=== PATIENT | male | born 1965 | race Caucasian/White ===

== ENCOUNTER → 2017-07-23 13:49 | Outpatient (CLI) | payer SELFPAY ==
[2017-07-23 16:04] LABS: Absolute Lymphocyte Count 1.45 X10^3/ul (0.83-4.51); Absolute Neutrophil Count 2.5 X10^3/uL (2.0-7.7); Basophil# 0.02 X10^3/uL; Basophil% 0.5 % (0-1); Eosinophil# 0.04 X10^3/uL; Eosinophils% 0.9 % (0-5); Hematocrit 43.1 % (40-54); Lymphocyte # 1.45 X10^3/ul (4.0); Lymphocyte % 33.2 % (19-41); Mean Corp Hgb Conc 34.8 g/gl (32-36); Mean Corpuscular Hgb 31.1 pg (27.0-32.0); Mean Corpuscular Volume 89.4 fL (80-94); Mean Platelet Vol. 10.7 fl (6.2-12.0); Monocyte# 0.36 X10^3/uL; Monocyte% 8.2 % (0-10); Neutrophil % 57.2 % (47-70); Platelet Count 240 K/mm3 (150-450); RBC Distribution Width CV 13.1 % (11.6-14.6); Red Blood Count 4.82 M/mm3 (4.6-6.2); White Blood Count 4.4 K/mm3 (4.4-11.0)
[2017-07-23 16:06] LABS: POSITIVE COUNT NO; POSITIVE DIFFERENTIAL NO; POSITIVE MORPHOLOGY NO
[2017-07-23 18:47] LABS: ALB/GLOB Ratio 1.1 RATIO (0.9-2.4); AST(SGOT) 16 U/L (15-37); Alanine Aminotransfer ALT/SGPT 25 U/L (16-61); Albumin, Serum 3.9 g/dL (3.2-5.0); Alkaline Phosphatase 43 U/L (45-117); Anion Gap 8 (5-15); BUN 14 mg/dL (7-18); BUN/Creat Ratio 13.5 RATIO (10-20); CRP < 2.90 mg/L (0.0-3.0); Calcium,Total 8.7 mg/dL (8.5-10.1); Chloride 106 mmol/L (98-107); Creatinine, Serum 1.04 mg/dL (0.70-1.30); EST Glomerular Filtration Rate 80 mL/min (>60); Est Glom Filt Rate - Afr Amer 97 mL/min (>60); Globulin 3.6 g/dL (2.2-4.2); Glucose 77 mg/dL (74-106); Lipase 73 U/L (73-393); Protein, Total 7.5 g/dL (6.4-8.2); Sodium Level 139 mmol/L (136-145); Thyroid Stim Hormone (TSH) 0.86 uIU/mL (0.358-3.74)
[2017-07-23 19:14] LABS: Erythrocyte Sedimentation Rate 4 mm/hr (0-20)
[2017-07-27 16:10] LABS: Endomysial Antibody IgA Negative (Negative)
[2017-07-28 12:28] LABS: Deamidated Gliadin IgA 2 units (0-19); Deamidated Gliadin IgG 3 units (0-19); Immunoglobulin A 137 mg/dL (90-386); t-Transglutaminase IgA <2 U/mL (0-3)
[2017-07-28 16:08] LABS: Beef <0.10 kU/L (Class 0); Corn <0.10 kU/L (Class 0); Egg, Whole <0.10 kU/L (Class 0); Milk (Cow) <0.10 kU/L (Class 0); Peanut <0.10 kU/L (Class 0); Pork <0.10 kU/L (Class 0); Soybean <0.10 kU/L (Class 0); Wheat <0.10 kU/L (Class 0)
[2017-07-29 10:34] LABS: Chocolate <0.10 kU/L (Class 0)
== END ==
PROVIDERS: Family Provider Family Medicine; PCP Family Medicine; Visit Provider Family Medicine
DX: K62.5 Hemorrhage of anus and rectum (principal); R10.11 Right upper quadrant pain; R19.5 Other fecal abnormalities
CPT/HCPCS: 80053; 82784; 83516; 83690; 84443; 85025; 85652; 86003; 86005; 86140; 86255

== ENCOUNTER → 2017-07-24 13:29 | Outpatient (CLI) | payer SELFPAY | PROVIDERS: Family Provider Family Medicine; PCP Family Medicine; Visit Provider Family Medicine | DX: K62.5 Hemorrhage of anus and rectum (principal); R19.5 Other fecal abnormalities; R10.11 Right upper quadrant pain | CPT/HCPCS: 87506 ==

== ENCOUNTER → 2017-07-25 07:07 | Outpatient (CLI) | payer SELFPAY ==
--- NOTE | 2017-07-25 07:10 | CT_ITS ---
STUDY: CT ABDOMEN AND PELVIS WITHOUT CONTRAST REASON FOR EXAM: Male, 51 years old. Colicky right upper quadrant abdominal pain RADIATION DOSAGE (If Supplied By Facility): CTDIvol = ( 7.66 ) mGy, DLP = ( 404.04 ) mGycm TECHNIQUE: Transaxial images were obtained from the dome of the diaphragm to the symphysis pubis without oral contrast, and without intravenous contrast. Sagittal and coronal images were reconstructed. Individualized dose optimization techniques were used for this CT. COMPARISON: Prior comparison studies are not available for review at this time. FINDINGS: The visualized lung bases are unremarkable. The visualized portions of the heart are within normal limits. Is a tiny lucency within the dome of the right lobe of liver. This may represent a tiny cyst measuring less than a centimeter in size. This is too small to characterize. The liver has a normal appearance otherwise. Normal gallbladder and extrahepatic biliary system. Normal spleen. Normal pancreas. Normal bilateral adrenal glands. Normal right kidney. Normal left kidney. Normal visualized stomach. There is no evidence for dilated bowel, ascites or pneumoperitoneum. Small bowel has a grossly normal unenhanced appearance. Stool is visible throughout the colon with scattered colonic diverticula. There is non-visualization of the appendix. There is minimal atherosclerotic calcification of the abdominal aorta with mild tortuosity, but without a demonstrated aneurysm. Normal inferior vena cava. Normal retroperitoneum. Normal urinary bladder. Normal visualized prostate gland. Normal abdominal wall. There mild degenerative changes of both hips. CT/Abdomen/Pelvis without Cont IMPRESSION: No CT evidence of acute intra-abdominal disease. Electronically Signed: Alisha Huizar MD at 8:14 EDT , Service support ,
== END ==
PROVIDERS: Family Provider Family Medicine; PCP Family Medicine; Visit Provider Family Medicine
DX: R10.11 Right upper quadrant pain (principal)
CPT/HCPCS: 74176

== ENCOUNTER → 2018-04-09 12:39 | Outpatient (CLI) | payer SELFPAY ==
--- NOTE | 2018-04-09 12:48 | CT_ITS ---
STUDY: CT CHEST WITH T WITHOUT CONTRAST REASON FOR EXAM: Male, 52 years old. Family history of coronary disease. Calcium scoring examination. Radiological ovary. RADIATION DOSAGE (If Supplied By Facility): CTDIvol = ( 25.70 ) mGy, DLP = ( 1157.32 ) mGycm TECHNIQUE: Transaxial imaging was performed pre-and post contrast administration of 60mL ml of Isovue 370 contrast material. Individualized dose optimization techniques were used for this CT. COMPARISON: None. FINDINGS: Minimal degree of increased markings at the lung bases suggestive of mild bibasilar atelectasis. There is no demonstrated pleural abnormality. Normal heart and pericardium. There are multiple small lymph nodes within the mediastinum, which are normal in size and morphology most compatible with reactive lymph hyperplasia. Normal hilar regions. Normal enhanced and unenhanced pulmonary arteries. Normal aorta arch and descending thoracic aorta. Normal osseous structures. Small hiatal hernia. CT/Limited Chest CT w/CCTA IMPRESSION: No acute abnormality is seen. Electronically Signed: Adelfo Quiles MD at 8:46 EST , Service support ,
[2018-04-09 12:57] VITALS: BP 105/65; PULSE 65; RESP 16; O2SAT 97; BMI 25.0
[2018-04-09 13:26] VITALS: BP 137/84; PULSE 69
[2018-04-09 13:37] VITALS: BP 92/69; PULSE 75; RESP 16; O2SAT 92
[2018-04-09 13:55] VITALS: BP 101/67; PULSE 67; RESP 16; O2SAT 94
[2018-04-09 14:16] VITALS: BP 108/61; PULSE 71; RESP 16; O2SAT 93
--- NOTE | 2018-04-09 14:17 | NURSING ---
at bedside, understands home going directions, will go right home to rest, pt to entrance via w/c, steady alert x3
--- NOTE | 2018-04-09 17:52 | CCTA_ITS ---
CCTA w/Cont Coronary Arteries Date of Study:: 04/09/18 Date: 04/09/2018 Procedure: Cardiac CTA and coronary calcium score Indications: Dyspnea on exertion; family history of cardiovascular disease Consent: Per the patient Procedure: The patient underwent a high resolution CT imaging of the chest on 04/09/2018 with attention to the coronary arteries. The examination was analyzed for the presence and extent of coronary artery disease as well as the presence and extent of coronary artery calcification using a coronary calcium quantification software. The patient was reported as tolerated the procedure well with no adverse event. LEFT MAIN CORONARY ARTERY: The left main coronary artery appears to be large long vessel which gives rise to the left anterior descending and left circumflex coronary artery. It does not appear to demonstrate any obvious angiographically significant appearing disease. LEFT ANTERIOR DESCENDING CORONARY ARTERY: The left anterior descending coronary. The large vessel coursing to the LVH packs and giving rise to a small septal content creation manager system and a moderate long paralleling first diagonal branch being system. The LAD system does not appear to demonstrate any obvious angiographically significant appearing disease. LEFT CIRCUMFLEX CORONARY ARTERY: The left circumflex coronary artery gives rise to an obtuse marginal branch. This appears to be a moderate size system. It does not appear to demonstrate any obvious angiographically significant appearing disease. RIGHT CORONARY ARTERY: The right coronary artery appears to be large dominant vessel giving rise to a right PDA system. It does not appear to demonstrate any obvious angiographically significant appearing disease. THORACIC AORTA: The thoracic aorta appears to be patent with no obvious angiographically significant appearing disease. PULMONARY ARTERY: The main pulmonary artery and proximal portion of the right and left pulmonary artery appears to be patent without obvious filling defects. LEFT ATRIUM/APPENDAGE: The left atrium/appendage appears to be without obvious filling defects. MITRAL VALVE: The mitral valve appears to be Bileaflet. AORTIC VALVE: The aortic valve appears to be trileaflet. LEFT VENTRICLE: Based upon the CT images obtain there appears to be grossly normal left ventricular size, wall motion, and systolic function, however, the calculated LVEF was reported at 23% (? accuracy). CORONARY CALCIUM SCORE: The coronary calcium score was reported at 0. A coronary calcium score of 0, based upon pre published reference tables, would be indicative of a less than 5% chance of underlying CAD in a very long cardiovascular disease risk. Comment: Based upon the aforementioned findings would consider further evaluation with left ventricular wall motion and systolic function with a transthoracic echocardiogram if clinically indicated. This note was generated using a voice recognition system and there may be incorrect words, spelling or punctuation that were not noted when reviewing the office note prior to saving.
== END ==
PROVIDERS: Family Provider Family Medicine; PCP Family Medicine; Referring Provider Family Medicine; Visit Provider Family Medicine
DX: Z82.49 Family history of ischemic heart disease and other diseases of the circulatory system (principal)
CPT/HCPCS: 75571; 75574; 76380; Q9967

== ENCOUNTER → 2019-11-28 15:30 | Outpatient (CLI) | payer SELFPAY ==
[2019-07-15 13:54] VITALS: BMI 25.0
[2019-11-28 18:01] LABS: Absolute Lymphocyte Count 1.63 X10^3/uL (0.83-4.51); Absolute Neutrophil Count 6.6 X10^3/uL (2.0-7.7); Basophil# 0.01 X10^3/uL; Basophil% 0.1 % (0-1); Eosinophil# 0.02 X10^3/uL; Eosinophils% 0.2 % (0-5); Hematocrit 41.8 % (40-54); Hemoglobin 14.1 g/dL (13.0-16.5); Lymphocyte # 1.63 X10^3/ul (4.0); Lymphocyte % 17.9 % (19-41); Mean Corp Hgb Conc 33.7 g/dL (32-36); Mean Corpuscular Hgb 31.3 pg (27.0-32.0); Mean Corpuscular Volume 92.7 fL (80-94); Mean Platelet Vol. 11.1 fl (6.2-12.0); Monocyte% 8.8 % (0-10); NRBC Flagged by Analyzer 0 % (0-5); Neutrophil # 6.61 X10^3/uL (2.7-7.7); Neutrophil % 72.7 % (47-70); Platelet Count 270 K/mm3 (150-450); RBC Distribution Width CV 12.9 % (11.6-14.6); RBC Distribution Width SD 43.8 fl (35.1-43.9); Red Blood Count 4.51 M/mm3 (4.6-6.2); White Blood Count 9.1 K/mm3 (4.4-11.0)
[2019-11-28 18:47] LABS: Anion Gap 10 (5-15); BUN 14 mg/dL (7-18); BUN/Creat Ratio 11.2 RATIO (10-20); Calcium,Total 9.3 mg/dL (8.5-10.1); Chloride 101 mmol/L (98-107); Creatinine, Serum 1.25 mg/dL (0.70-1.30); EST Glomerular Filtration Rate 64 mL/min (>60); Est Glom Filt Rate - Afr Amer 78 mL/min (>60); Glucose 68 mg/dL (74-106); Potassium 4.2 mmol/L (3.5-5.1); Sodium Level 137 mmol/L (136-145); Thyroid Stim Hormone (TSH) 0.68 uIU/mL (0.358-3.74)
== END ==
PROVIDERS: PCP Family Medicine; Referring Provider Family Medicine; Visit Provider Family Medicine
DX: F43.22 Adjustment disorder with anxiety (principal)
CPT/HCPCS: 36415; 80048; 84443; 85025

== ENCOUNTER → 2020-01-17 11:56 | Outpatient (CLI) | payer SELFPAY ==
[2019-07-15 13:54] VITALS: BMI 25.0
[2020-01-17 15:17] LABS: Absolute Lymphocyte Count 1.04 X10^3/uL (0.83-4.51); Absolute Neutrophil Count 3.5 X10^3/uL (2.0-7.7); Basophil# 0.01 X10^3/uL; Basophil% 0.2 % (0-1); Eosinophil# 0.04 X10^3/uL; Eosinophils% 0.8 % (0-5); Hematocrit 38.2 % (40-54); Hemoglobin 12.6 g/dL (13.0-16.5); Lymphocyte # 1.04 X10^3/ul (4.0); Lymphocyte % 20.7 % (19-41); Mean Corpuscular Hgb 31.3 pg (27.0-32.0); Mean Platelet Vol. 11.3 fl (6.2-12.0); Monocyte# 0.41 X10^3/uL; Monocyte% 8.2 % (0-10); NRBC Flagged by Analyzer 0 % (0-5); Neutrophil # 3.51 X10^3/uL (2.7-7.7); Neutrophil % 69.9 % (47-70); Platelet Count 283 K/mm3 (150-450); RBC Distribution Width SD 49.2 fl (35.1-43.9); Red Blood Count 4.02 M/mm3 (4.6-6.2)
[2020-01-17 15:36] LABS: AST(SGOT) 64 U/L (15-37); Alanine Aminotransfer ALT/SGPT 183 U/L (16-61); Albumin, Serum 3.6 g/dL (3.2-5.0); Alkaline Phosphatase 171 U/L (45-117); Anion Gap 8 (5-15); BUN 14 mg/dL (7-18); BUN/Creat Ratio 14.7 RATIO (10-20); CRP < 2.90 mg/L (0.0-3.0); Calcium,Total 9.1 mg/dL (8.5-10.1); Chloride 103 mmol/L (98-107); Creatinine, Serum 0.95 mg/dL (0.70-1.30); EST Glomerular Filtration Rate 88 mL/min (>60); Est Glom Filt Rate - Afr Amer 106 mL/min (>60); Globulin 3.7 g/dL (2.2-4.2); Glucose 83 mg/dL (74-106); Potassium 4.2 mmol/L (3.5-5.1); Protein, Total 7.3 g/dL (6.4-8.2); Sodium Level 138 mmol/L (136-145)
[2020-01-19 08:05] LABS: SARS-COV-2 TOTAL ABS Reactive (Nonreactive)
[2020-01-19 16:26] LABS: ANTINUCLEAR ANTIBODIES DIRECT Negative (Negative)
[2020-01-20 18:45] LABS: GGTP 450 U/L (15-85)
[2020-01-23 09:52] LABS: Hepatitis C Antibody Non-Reactive (Nonreactive)
== END ==
LOC: MFPLAB 11:57
PROVIDERS: PCP Family Medicine; Referring Provider Family Medicine; Visit Provider Family Medicine
DX: U07.1 COVID-19 (principal); R63.4 Abnormal weight loss
CPT/HCPCS: 36415; 80053; 82533; 82977; 83516; 85025; 86038; 86140; 86708; 86709; 86769; 86803

== ENCOUNTER → 2020-01-18 14:01 | Outpatient (CLI) | payer SELFPAY ==
[2019-07-15 13:54] VITALS: BMI 25.0
--- NOTE | 2020-01-18 14:16 | CT_ITS ---
STUDY: CT ABDOMEN AND PELVIS WITH CONTRAST REASON FOR EXAM: Male, 54 years old. ABDOMINAL PAIN X 5-6 MONTHS RADIATION DOSAGE (If Supplied By Facility): CTDIvol = ( 13.41 ) mGy, DLP = ( 507.52 ) mGycm TECHNIQUE: Transaxial images were obtained from the dome of the diaphragm to the symphysis pubis with oral contrast. Oral and amp; IV Readi-CAT and amp; 100mL Isovue-300 was administered. Sagittal and coronal images were reconstructed. Individualized dose optimization techniques were used for this CT. COMPARISON: Comparison is made with prior study dated 07/25/2017. FINDINGS: The visualized lung bases are unremarkable. The visualized portions of the heart are within normal limits. 1 cm lucency is seen in the dome of the right lower lobe are suggestive of a small cyst. Normal gallbladder and extrahepatic biliary system. Normal spleen. Normal pancreas. Normal bilateral adrenal glands. Normal right kidney. Normal left kidney. Normal visualized stomach. Normal small intestine. Large amount of fecal material is seen in the rectosigmoid colon. The appendix is visualized and appears normal. Normal abdominal aorta. Normal inferior vena cava. Normal retroperitoneum. Normal urinary bladder. Normal abdominal wall. Normal osseous structures. CT/Abdomen/Pelvis WITH Contrast IMPRESSION: Normal enhanced CT of the abdomen and pelvis. Electronically Signed: Adelfo Quiles, at 14:54 EST , Service support ,
== END ==
PROVIDERS: PCP Family Medicine
DX: R10.84 Generalized abdominal pain (principal); K62.5 Hemorrhage of anus and rectum
CPT/HCPCS: 74177; Q9967

== ENCOUNTER → 2020-01-31 09:28 | Outpatient (CLI) | payer SELFPAY ==
[2019-07-15 13:54] VITALS: BMI 25.0
--- NOTE | 2020-01-31 09:34 | US_ITS ---
STUDY: ABDOMINAL ULTRASOUND - RIGHT UPPER QUADRANT REASON FOR VISIT: Male, 54 years old ELEVATED LIVER ENZYMES TECHNIQUE: Ultrasound evaluation of the right upper quadrant was performed with real-time and static cruz-scale imaging. TECHNICAL QUALITY: Adequate. COMPARISON: None. FINDINGS: Liver: The liver measures 15 cm. There is normal echogenicity of the liver. The bile ducts are within normal limits. There is hepatic color flow. The direction of portal flow is hepatopetal. There is no demonstrated mass lesion. Gallbladder: Normal distended gallbladder. The gallbladder wall measures 1.8 mm. There is a negative sonographic Pryor''s sign. There is no pericholecystic fluid. There are no gallstones. Common Bile Duct (C.B.D.): The common bile duct measures 5 mm. Pancreas: There is no demonstrated pancreatic mass or cyst. Right Kidney: Normal size of the right kidney. The right kidney measures 11.0 cm. Normal renal cortex. The right cortex measures 1.0 cm. There is no demonstrated renal mass or cyst. There is no right hydronephrosis. US/Liver IMPRESSION: Normal right upper quadrant ultrasound examination. Electronically Signed: Josué Prajapati MD (Brooks) at 18:51 EST , Service support ,
[2020-01-31 15:18] LABS: Erythrocyte Sedimentation Rate 5 mm/hr (0-20)
[2020-01-31 15:57] LABS: CRP < 2.90 mg/L (0.0-3.0); Iron 63 ug/dL (65-175); Iron Binding Capacity,Total 306 ug/dL (250-450); Lipase 114 U/L (73-393)
[2020-02-03 16:08] LABS: PROEL- A/G Ratio 1.4 (0.7-1.7); PROEL- Albumin 3.8 g/dL (2.9-4.4); PROEL- Alpha-1 Globulin 0.2 g/dL (0.0-0.4); PROEL- Alpha-2 Globulin 0.6 g/dL (0.4-1.0); PROEL- Beta Globulin 0.9 g/dL (0.7-1.3); PROEL- Globulin, Total 2.7 g/dL (2.2-3.9); PROEL- TOTAL PROTEIN 6.5 g/dL (6.0-8.5)
== END ==
PROVIDERS: PCP Family Medicine; Referring Provider Family Medicine; Visit Provider Family Medicine
DX: R74.8 Abnormal levels of other serum enzymes (principal); R74.01 Elevation of levels of liver transaminase levels
CPT/HCPCS: 36415; 76705; 83540; 83550; 83690; 84165; 85652; 86140

== ENCOUNTER → 2020-02-08 15:29 | Outpatient (CLI) | payer SELFPAY ==
[2019-07-15 13:54] VITALS: BMI 25.0
[2020-02-08 18:27] LABS: Absolute Lymphocyte Count 1.37 X10^3/uL (0.83-4.51); Absolute Neutrophil Count 3.9 X10^3/uL (2.0-7.7); Basophil# 0.04 X10^3/uL; Basophil% 0.7 % (0-1); Eosinophil# 0.13 X10^3/uL; Eosinophils% 2.2 % (0-5); Hematocrit 38.7 % (40-54); Hemoglobin 12.6 g/dL (13.0-16.5); Lymphocyte # 1.37 X10^3/ul (4.0); Lymphocyte % 23.5 % (19-41); Mean Corp Hgb Conc 32.6 g/dL (32-36); Mean Corpuscular Hgb 31.2 pg (27.0-32.0); Mean Corpuscular Volume 95.8 fL (80-94); Monocyte# 0.42 X10^3/uL; Monocyte% 7.2 % (0-10); NRBC Flagged by Analyzer 0 % (0-5); Neutrophil # 3.87 X10^3/uL (2.7-7.7); Neutrophil % 66.2 % (47-70); Platelet Count 284 K/mm3 (150-450); RBC Distribution Width CV 13.9 % (11.6-14.6); Red Blood Count 4.04 M/mm3 (4.6-6.2); White Blood Count 5.8 K/mm3 (4.4-11.0)
[2020-02-08 18:49] LABS: ALB/GLOB Ratio 0.9 RATIO (0.9-2.4); AST(SGOT) 51 U/L (15-37); Alanine Aminotransfer ALT/SGPT 129 U/L (16-61); Albumin, Serum 3.5 g/dL (3.2-5.0); Alkaline Phosphatase 98 U/L (45-117); Anion Gap 5 (5-15); BUN 11 mg/dL (7-18); BUN/Creat Ratio 11.3 RATIO (10-20); Calcium,Total 9.3 mg/dL (8.5-10.1); Chloride 103 mmol/L (98-107); Creatinine, Serum 0.97 mg/dL (0.70-1.30); EST Glomerular Filtration Rate 86 mL/min (>60); Est Glom Filt Rate - Afr Amer 104 mL/min (>60); GGTP 280 U/L (15-85); Globulin 3.8 g/dL (2.2-4.2); Glucose 84 mg/dL (74-106); Potassium 4.2 mmol/L (3.5-5.1); Protein, Total 7.3 g/dL (6.4-8.2); Sodium Level 136 mmol/L (136-145)
[2020-02-10 16:30] LABS: Anti-Smooth Muscle ABS 4 Units (0-19)
== END ==
PROVIDERS: PCP Family Medicine; Visit Provider Family Medicine
DX: R74.8 Abnormal levels of other serum enzymes (principal); R74.01 Elevation of levels of liver transaminase levels
CPT/HCPCS: 36415; 80053; 82977; 83516; 85025; 86900; 86901

== ENCOUNTER → 2020-02-15 14:27 | Outpatient (CLI) | payer SELFPAY ==
[2019-07-15 13:54] VITALS: BMI 25.0
[2020-02-18 11:23] LABS: EBV Acute VCA IgM < 36.0 U/mL (0.0-35.9)
[2020-02-18 11:28] LABS: CMV Acute Antibody IgM < 30.0 AU/mL (0.0-29.9); CMV Antibody IgG < 0.60 U/mL (0.00-0.59); EBV Early Antigen IgG <9.0 U/mL (0.0-8.9)
== END ==
PROVIDERS: PCP Family Medicine; Referring Provider Family Medicine; Visit Provider Family Medicine
DX: R53.83 Other fatigue (principal)
CPT/HCPCS: 36415; 86644; 86645; 86663; 86664; 86665

== ENCOUNTER → 2020-02-17 15:16 | Outpatient (CLI) | payer SELFPAY ==
[2019-07-15 13:54] VITALS: BMI 25.0
[2020-02-17 18:17] LABS: Absolute Lymphocyte Count 1.27 X10^3/uL (0.83-4.51); Absolute Neutrophil Count 3.9 X10^3/uL (2.0-7.7); Basophil# 0.02 X10^3/uL; Basophil% 0.4 % (0-1); Eosinophil# 0.07 X10^3/uL; Eosinophils% 1.2 % (0-5); Hematocrit 37.1 % (40-54); Lymphocyte # 1.27 X10^3/ul (4.0); Lymphocyte % 22.6 % (19-41); Mean Corp Hgb Conc 32.3 g/dL (32-36); Mean Corpuscular Hgb 30.5 pg (27.0-32.0); Mean Corpuscular Volume 94.2 fL (80-94); Mean Platelet Vol. 10.8 fl (6.2-12.0); Monocyte# 0.39 X10^3/uL; Monocyte% 6.9 % (0-10); NRBC Flagged by Analyzer 0 % (0-5); Neutrophil # 3.87 X10^3/uL (2.7-7.7); Neutrophil % 68.7 % (47-70); Platelet Count 263 K/mm3 (150-450); RBC Distribution Width CV 13.7 % (11.6-14.6); RBC Distribution Width SD 47.3 fl (35.1-43.9); Red Blood Count 3.94 M/mm3 (4.6-6.2); White Blood Count 5.6 K/mm3 (4.4-11.0)
[2020-02-17 18:43] LABS: ALB/GLOB Ratio 1.1 RATIO (0.9-2.4); AST(SGOT) 46 U/L (15-37); Alanine Aminotransfer ALT/SGPT 132 U/L (16-61); Albumin, Serum 3.6 g/dL (3.2-5.0); Alkaline Phosphatase 90 U/L (45-117); Anion Gap 5 (5-15); BUN 15 mg/dL (7-18); BUN/Creat Ratio 16.4 RATIO (10-20); Calcium,Total 8.8 mg/dL (8.5-10.1); Chloride 104 mmol/L (98-107); Creatinine, Serum 0.92 mg/dL (0.70-1.30); EST Glomerular Filtration Rate 92 mL/min (>60); Est Glom Filt Rate - Afr Amer 111 mL/min (>60); GGTP 250 U/L (15-85); Globulin 3.3 g/dL (2.2-4.2); Glucose 94 mg/dL (74-106); Potassium 3.9 mmol/L (3.5-5.1); Protein, Total 6.9 g/dL (6.4-8.2); Sodium Level 136 mmol/L (136-145)
== END ==
PROVIDERS: PCP Family Medicine; Referring Provider Family Medicine; Visit Provider Family Medicine
DX: R74.01 Elevation of levels of liver transaminase levels (principal); F41.9 Anxiety disorder, unspecified
CPT/HCPCS: 36415; 80053; 82977; 85025

== ENCOUNTER → 2020-06-20 11:00 | Outpatient (CLI) | payer SELFPAY ==
[2019-07-15 13:54] VITALS: BMI 25.0
[2020-06-20 13:25] LABS: AST(SGOT) 13 U/L (15-37); Alanine Aminotransfer ALT/SGPT 25 U/L (16-61); Alkaline Phosphatase 51 U/L (45-117); Bilirubin, Direct 0.13 mg/dL (0.00-0.30); GGTP 30 U/L (15-85)
[2020-06-21 16:12] LABS: Anti-Mitochondrial AB <20.0 Units (0.0-20.0)
[2020-06-21 16:13] LABS: Alpha Antitrypsin Serum 127 mg/dL (101-187)
== END ==
PROVIDERS: PCP Family Medicine; Referring Provider Internal Medicine Gastroenterology; Visit Provider Internal Medicine Gastroenterology
DX: R10.11 Right upper quadrant pain (principal); R94.5 Abnormal results of liver function studies
CPT/HCPCS: 36415; 80076; 82103; 82977; 83516

== ENCOUNTER → 2020-07-06 12:15 | Outpatient (CLI) | payer SELFPAY ==
[2019-07-15 13:54] VITALS: BMI 25.0
--- NOTE | 2020-07-06 12:20 | NM_ITS ---
CLINICAL: 54-year-old male with reported history of right upper quadrant abdominal pain and elevation of the serum transaminase enzyme levels. RADIONUCLIDE HEPATOBILIARY SCINTIGRAPHY COMPARISON: Abdominal ultrasound report 01/31/2020 FINDINGS: Following the intravenous administration of 5.6 mCi of 99m Tc Mebrofenin, hepatobiliary images reveal: 1. Relatively prompt and homogeneous radiopharmaceutical concentration is noted by a normal sized liver. No parenchymal defects are identified. 2. Gallbladder activity is identified at 15 minutes post radiopharmaceutical administration. 3. Small intestinal tract is observed at 30 minutes following tracer injection. 4. Washout of the radiopharmaceutical by the hepatic parenchyma appears qualitatively normal. The patient was administered a fatty meal ( 8 ounces Half and Half). The post fatty meal ingestion gallbladder ejection fraction calculated at 30 minutes was noted to be 52.0 % (normal greater than 30%). NM/Hepatobilliary Img w/Pharm Int IMPRESSION: 1. NORMAL 99m Tc Mebrofenin hepatobiliary imaging examination with fatty meal ingestion. A. A gallbladder ejection fraction calculated to be greater than 30% following the administration of an ingested fatty meal makes the probability of functional hepatobiliary disease (gallbladder and/or sphincter of Oddi dyskinesia) and/or organic hepatobiliary disease (chronic acalculous cholecystitis and/or cystic duct syndrome) to be low. (Raymond and Magdiel, J Nucl Med 43: 1603, 2002). Comparable sensitivities are achieved with fatty meal HIDA examinations when compared to CCK infusion studies. (Melanie et al, J Nucl Med 25: 21, 1983). Electronically Signed: Henok Smart DO at 19:14 EDT Tel , Service support ,
== END ==
PROVIDERS: PCP Family Medicine; Referring Provider Internal Medicine Gastroenterology; Visit Provider Internal Medicine Gastroenterology
DX: R10.11 Right upper quadrant pain (principal); R94.5 Abnormal results of liver function studies
CPT/HCPCS: 78227; A9537

== ENCOUNTER 2022-08-19 06:04 | Day surgery (SDC) | payer SELFPAY ==
[2022-08-19] VITALS (8 sets, daily range): BP systolic 83–105; BP diastolic 60–75; PULSE 78–102; RESP 16; TEMP 36.4–36.8; O2SAT 92–96; BMI 24.7
--- NOTE | 2022-08-19 06:12 | HP.PCM_ITS ---
History and Physical Date of Admission: 08/19/22 Visit Reasons:?UPPER & LOWER & HEMORRHOIDS Chief Complaint: Consult upper and lower scopes Wireless Manager Required: No Is patient in pain?: No Allergies No Known Allergies Allergy (Verified 06/26/22 09:01) Medications NK? 06/26/22 [History Confirmed 06/26/22] PFSH Medical History? Back problem Blood in stool Constipation Hemorrhoid Hyperlipidemia Internal bleeding hemorrhoids Surgical History? Hx of appendectomy Hx of colonoscopy Hx of melanoma excision Family History? Mother Arthritis Myocardial infarctionFather Heart disease Hypertension Social History? Smoking Status:? Never smoker second hand exposure:? No alcohol intake:? current alcohol intake frequency: holidays/special occasions only substance use type:? does not use caffeine:? Yes what type of physical activity do you participate in:? walking, running and additional details: crossfit frequency:? 3-4 times per week HPI HPI HPI: 56-year-old gentleman is referred by Dr. Cedric Dumont for consideration of possible a upper and lower endoscopy.? The patient has had previous history of symptomatic hemorrhoids.? Also now presents with new concerns regarding vomiting.? The patient's most recent visit with me was July 15, 2019.? He was having trouble with prolapsing bleeding internal hemorrhoids.? I had performed a colonoscopy for him December 10, 2016 and what appeared to be a cecal polyp I biopsied.? Pathology showed normal colonic mucosa.? An extensive discussion was had regarding treatment techniques including PPH stapled hemorrhoidopexy versus surgical hemorrhoidectomy.? We did not pursue any treatment at that time. The patient works as an auctioneer.? Recently business has been extraordinarily busy.? He is having increased problems on 2 different aspects.? He is got constipation and then prolapsing hemorrhoids almost with every bowel movement.? His intermittent rectal bleeding.? He also complains that he thinks he has hiatal hernia.? Occasionally with swallowing he will get a pressure sensation in the low chest area almost like a shortness of breath.? He has not had any weight loss.? He states that from a heart lung standpoint he otherwise feels normal.? He is able to climb a flight of stairs without chest pain or shortness of breath. ROS General General: No weight change, appetite, fatigue, colon cancer, breast cancer or weakness HEENT HEENT: No difficulty swallowing, eye injury, eye surgery, swollen glands or hoarseness Endo Endocrine: No thyroid disease, diabetes mellitus, thyroid cancer, Hair loss, heat intolerance or cold intolerance Skin Skin: Yes rash; No changing moles Breast Breast: No left breast lump, right breast lump, nipple discharge, breast pain, abnormal mammogram, abnormal US or breast enlargement Musc Musculoskeletal: Yes back problems; No arthritis, rheumatoid arthritis, gout or joint pain Cardio Cardiovascular: No murmur, pacemaker, heart disease, atrial fibrillation, high blood pressure, heart attack, heart stent, palpitations, shortness of breat with exertion or chest pain Psych Psychiatric: No depression, anxiety or hearing voices Resp Respiratory: No shortness of breath, No sleep apnea, No cough, No COPD, No asthma, No emphysema and No wheezing Gastro Gastrointestinal: No abdominal pain, No nausea or vomiting, No diarrhea, Yes constipation, No blood in stool, No acid reflux, Yes hemorrhoids, No ulcers, No gallbladder problem and Yes black,tarry stools Sanket Hematologic: No blood thinners, No blood disorders, No bleeding, No anemia and No blood clots Neuro Neurologic: No system reviewed and no additional complaints, except as documented, No as per HPI, No abnormal gait, No abnormal hearing, No abnormal movements, No abnormal speech, No behavioral changes, No burning sensations, No confusion, No convulsions, No disequilibrium, No dizziness, No localized weakness, No frequent falls, No headache(s), No lack of coordination, No loss of vision, No memory loss, Yes numbness, No other visual disturbances, No radicular pain, No restless legs, No sensory deficit, No syncope, Yes tingling, No tremor(s), No weakness and No other Exam Const General: cooperative, comfortable and no acute distress [facility] Head: normal to inspection Eyes General: appearance normal, both eyes and all related structures Chest Chest palpation & inspection: normal inspection of the chest Resp Effort & Inspection: normal respiratory effort Auscultation: clear to auscultation bilaterally Cardio Rate: regular rate Rhythm: regular rhythm GI Inspection: normal to inspection Palpation: soft and no hepatosplenomegaly Auscultation: normal bowel sounds Musc Cervical Spine: normal cervical lordosis Skin General: no rashes or lesions noted Neuro General: patient alert, patient awake and patient oriented x3 Extrem General: no calf tenderness Psych Appearance: grossly normal Assessment and Plan Assessment and Plan (1) Vomiting: ?Status:?Acute (2) Blood in stool: ?Status:?Acute (3) Constipation: ?Status:?Acute ?Plan: Patient has global symptoms consistent with esophageal dysphagia of undetermined etiology which he thinks might be a hiatal hernia but this has not been previously diagnosed as well as problems with constipation and ongoing problems with rectal bleeding.? He also is complaining of prolapsing of his hemorrhoids now on almost every occasion.? It has been since December 2016 from his previous colonoscopy. I propose for him a combined esophagogastroduodenoscopy with possible biopsy and colonoscopy with possible biopsy or polypectomy as indicated.? He is aware of the technique, benefit, risk and alternatives.? At this point I am not proposing that we attempt to combine all of that with a hemorrhoid procedure.? I have instructed him that recovery from a hemorrhoidectomy will take time and he suggested it might be better to do in the winter.? At this point based upon his symptoms I suspect that he will require a future surgical hemorrhoidectomy.? He is aware that this will require downtime from his auctioneering Copy: Dr. Cedric Rider MD, FACS I have examined the patient and the H&P has been reviewed. There are no clinical changes since date of exam. Reno Rider M.D., F.A.C.S.
[2022-08-19] MEDS: Lactated Ringers 1,000 ML 15 ML IV (06:51)
--- NOTE | 2022-08-19 07:00 | EGD_PTH ---
PATIENT: DIANNE CUMMINS Jr. LOC: EN U#:[id number] AGE/SX: 56/M ROOM: RE08/19/[address]: Dr. Reno Rider MD : 1965 BED: DIS: 08/19/2022 SPEC #: [id number] RECD: 08/19/22 11:34 STATUS: IMELDA COOLNoah #: [id number] LOLA: 08/19/22 07:[address]: Reno Rider DEPT: SURGICAL PATHOLOGY RECD BY: Chiara Crowe ENTERED: 08/19/22 12:31 SP TYPE: EGD BIOPSY OTHR DR: Dr. Cedric Dumont MD Tissues: A - Gastric mucous membrane B - Esophagus, NOS C - Esophagus, NOS Procedures: Special Stain Group II Surgery Specimen Level IV Alcian Blue/PAS (control) HEADER OPERATION: Colonoscopy, EGD with biopsies (MAC) PRE-OP DIAGNOSIS: Vomiting, blood in stool, constipation TISSUE SUBMITTED: A - Antrum biopsy for H. pylori and path, B - Distal esophagus, C - Mid esophagus MICROSCOPIC DIAGNOSIS A. Antrum, biopsy: Mild gastritis. See microscopic description and comment. B. Distal esophagus, biopsy: Fragments of gastroesophageal epithelium with mild chronic inflammation. Intestinal metaplasia (goblet cell metaplasia) not identified. See comment. C. Mid esophagus, biopsy: A fragment of benign squamous epithelium. SJ:rg 08/20/2022 COMMENT A. The results of immunohistochemistry for Helicobacter pylori will be reported separately ([id number]). B. Alcian blue/PAS stain with matched control is used in the evaluation of the specimen. MICROSCOPIC DESCRIPTION Slides are reviewed. A. The specimen shows fragments of gastric mucosa with chronic inflammatory cell infiltrates in the lamina propria consisting of lymphocytes and plasma cells, consistent with mild chronic gastritis. GROSS DESCRIPTION A - Received in fixative is one container labeled with the patient's name and designated antrum biopsy. The specimen consists of one irregular fragment of light bravo soft tissue that measures 0.3 x 0.3 x 0.1 cm. The specimen is totally submitted in one cassette. B - Received in fixative is one container labeled with the patient's name and designated distal esophagus. The specimen consists of two irregular fragments of light bravo soft tissue that in aggregate measure 0.4 x 0.3 x 0.1 cm. The specimen is totally submitted in one cassette. C - Received in fixative is one container labeled with the patient's name and designated mid esophagus. The specimen consists of one irregular fragment of light bravo soft tissue that measures 0.6 x 0.3 x 0.1 cm. The specimen is totally submitted in one cassette. / SJ:rg 08/19/2022 TC:3 CPT: 45420 x3, 15464
--- NOTE | 2022-08-19 07:00 | IMM_PTH ---
PATIENT: DIANNE CUMMINS Jr. LOC: RISA U#:[id number] AGE/SX: 56/M ROOM: RE08/19/[address]: Dr. Reno Rider MD : 1965 BED: DIS: 08/19/2022 SPEC #: [id number] RECD: 08/19/22 12:55 STATUS: IMELDA REQ #: [id number] LOLA: 08/19/22 07:[address]: Reno Rider DEPT: IMMUNOHISTOCHEMISTRY RECD BY: Tanja Garza ENTERED: 08/19/22 12:56 SP TYPE: IMMUNO OTHR DR: Dr. Cedric Dumont MD Tissues: A - Stomach, NOS Procedures: H Pylori (initial) PHYSICIAN & INSTITUTION [place] [address] SPECIMEN INFORMATION: Tissue Source: A ? Antrum biopsy Clinical Info: Vomiting, blood in stool, constipation Specimen Number: [id number] CPT code: 16197 METHODOLOGY: Deparaffinized sections of prefer/formalin-fixed tissue or PAP/DQ stained slides are incubated with monoclonal/polyclonal antibodies/oligonucleotide probes. Localization is made via biotin free immunoperoxidase method. Appropriate controls are performed and reacted as expected. Results on target cell population are indicated in the following table: RESULTS: ANTIBODY / CLONE RESULT Block A H Pylori (polyclonal) negative These tests were developed and their performance characteristics determined by [facility]. They may not have been cleared or approved by the U.S. Food and Drug Administration. The FDA has determined that such clearance or approval is not necessary. The above immunohistochemical/dualISH markers are ordered and reviewed by the Pathologist. INTERPRETATION: A. Antrum, biopsy: Negative for Helicobacter pylori organisms. SJ:kahlil 08/20/2022
--- NOTE | 2022-08-19 07:36 | OP.EGD_ITS ---
Patient Name: Nazia Huizar Procedure Date: 08/19/2022 6:59 AM Date of : 1965 Age: 56 Procedure: Upper GI endoscopy Indications: Suspected esophageal reflux Providers: Reno Rider MD Medicines: See the Anesthesia note for documentation of the administered medications Complications: No immediate complications. Procedure: Pre-Anesthesia Assessment: - Prior to the procedure, a History and Physical was performed, and patient medications and allergies were reviewed. The patient's tolerance of previous anesthesia was also reviewed. The risks and benefits of the procedure and the sedation options and risks were discussed with the patient. All questions were answered, and informed consent was obtained. Prior Anticoagulants: The patient has taken no previous anticoagulant or antiplatelet agents. ASA Grade Assessment: II - A patient with mild systemic disease. After reviewing the risks and benefits, the patient was deemed in satisfactory condition to undergo the procedure. After obtaining informed consent, the endoscope was passed under direct vision. Throughout the procedure, the patient's blood pressure, pulse, and oxygen saturations were monitored continuously. The pediatric colonoscope was introduced through the mouth, and advanced to the second part of duodenum. The upper GI endoscopy was accomplished without difficulty. The patient tolerated the procedure well. Scope In: 7:10:06 AM Scope Out: 7:17:45 AM Total Procedure Duration Time 0 hours 7 minutes 39 seconds Findings: The Z-line was regular and was found 44 cm from the incisors. Biopsies were taken with a cold forceps for histology. The middle third of the esophagus was normal. Biopsies were taken with a cold forceps for histology. Diffuse mildly erythematous mucosa without bleeding was found in the gastric antrum. Biopsies were taken with a cold forceps for histology. The in the duodenum was normal. Grade I varices were found in the middle third of the esophagus. Impression: - Z-line regular, 44 cm from the incisors. Biopsied. No significant hiatal hernia identified. - Normal middle third of esophagus. Biopsied. Single column minimal esophageal varix identified - Erythematous mucosa in the antrum. Biopsied. - Normal. Recommendation: - Await pathology results. - Discharge patient to home. - Resume previous diet. - Continue present medications. - Await pathology results. - Telephone my office for pathology results in 1 week. If patient's symptoms persist then consider esophageal manometry to evaluate for LES incompetence. Procedure Code(s): --- Professional --- 27680, Esophagogastroduodenoscopy, flexible, transoral; with biopsy, single or multiple Diagnosis Code(s): --- Professional --- K31.89, Other diseases of stomach and duodenum CPT copyright 2017 [employer]. All rights reserved. The codes documented in this report are preliminary and upon guest relations executive review may be revised to meet current compliance requirements. Reno Rider MD 08/19/2022 7:35:50 AM This report has been signed electronically. Number of Addenda: 0 Note Initiated On: 08/19/2022 6:59 AM
--- NOTE | 2022-08-19 07:37 | OP.CCLET_ITS ---
08/19/2022 Cedric Dumont [address] [place] [address] Re : Upper GI endoscopy procedure for Nazia Huizar Dear Dr. Dumont This procedure was performed on Friday, August 19, 2022. My impressions and recommendations are as follows: Impressions : - Z-line regular, 44 cm from the incisors. Biopsied. No significant hiatal hernia identified. - Normal middle third of esophagus. Biopsied. Single column minimal esophageal varix identified - Erythematous mucosa in the antrum. Biopsied. - Normal. Recommendations : - Await pathology results. - Discharge patient to home. - Resume previous diet. - Continue present medications. - Await pathology results. - Telephone my office for pathology results in 1 week. If patient's symptoms persist then consider esophageal manometry to evaluate for LES incompetence. My findings are described in the full procedure note, which is enclosed. If I can be of further assistance, please feel free to contact me at Doctor phone number(s): Work: . Sincerely, Reno Rider MD 08/19/2022 7:35:50 AM This report has been signed electronically.
--- NOTE | 2022-08-19 07:42 | OP.COLON_ITS ---
Patient Name: Nazia Huizar Procedure Date: 08/19/2022 7:18 AM Date of : 1965 Age: 56 Procedure: Colonoscopy Indications: Rectal bleeding Providers: Reno Rider MD Medicines: See the Anesthesia note for documentation of the administered medications Patient Profile: Last Colonoscopy: December 2016. Complications: No immediate complications. Procedure: Pre-Anesthesia Assessment: - Prior to the procedure, a History and Physical was performed, and patient medications and allergies were reviewed. The patient's tolerance of previous anesthesia was also reviewed. The risks and benefits of the procedure and the sedation options and risks were discussed with the patient. All questions were answered, and informed consent was obtained. Prior Anticoagulants: The patient has taken no previous anticoagulant or antiplatelet agents. ASA Grade Assessment: II - A patient with mild systemic disease. After reviewing the risks and benefits, the patient was deemed in satisfactory condition to undergo the procedure. After I obtained informed consent, the scope was passed under direct vision. Throughout the procedure, the patient's blood pressure, pulse, and oxygen saturations were monitored continuously. The pediatric colonoscope was introduced through the anus and advanced to the cecum, identified by appendiceal orifice and ileocecal valve. The colonoscopy was performed without difficulty. The patient tolerated the procedure well. The quality of the bowel preparation was good. The ileocecal valve and the appendiceal orifice were photographed. Scope In: 7:18:46 AM Scope Withdrawal Time 0 hours 6 minutes 17 seconds Scope Out: 7:30:09 AM Total Procedure Duration Time 0 hours 11 minutes 23 seconds Findings: The digital rectal exam findings include non-thrombosed external hemorrhoids, non-thrombosed internal hemorrhoids and internal hemorrhoids that prolapse with straining, but require manual replacement into the anal canal (Grade III). Pertinent negatives include normal prostate (size, shape, and consistency). The colon (entire examined portion) appeared normal. Impression: - Non-thrombosed external hemorrhoids, non-thrombosed internal hemorrhoids and internal hemorrhoids that prolapse with straining, but require manual replacement into the anal canal (Grade III) found on digital rectal exam. Friable to touch with easy bleeding from these prolapsing internal hemorrhoids. - The entire examined colon is normal. - No specimens collected. Recommendation: - Discharge patient to home. - Resume previous diet. - Continue present medications. - Repeat colonoscopy in 10 years for screening purposes. - Return to my office PRN to discuss surgical hemorrhoidectomy and treatment of prolapsing bleeding internal and external hemorrhoids Procedure Code(s): --- Professional --- 44257, Colonoscopy, flexible; diagnostic, including collection of specimen(s) by brushing or washing, when performed (separate procedure) Diagnosis Code(s): --- Professional --- K64.2, Third degree hemorrhoids K64.4, Residual hemorrhoidal skin tags K62.5, Hemorrhage of anus and rectum CPT copyright 2017 [employer]. All rights reserved. The codes documented in this report are preliminary and upon certified procedural coder review may be revised to meet current compliance requirements. Reno Rider MD 08/19/2022 7:41:33 AM This report has been signed electronically. Number of Addenda: 0 Note Initiated On: 08/19/2022 7:18 AM
--- NOTE | 2022-08-19 07:42 | OP.CCLET_ITS ---
08/19/2022 Cedric Dumont [address] [place] [address] Re : Colonoscopy procedure for Nazia Huizar Dear Dr. Dumont This procedure was performed on Friday, August 19, 2022. My impressions and recommendations are as follows: Impressions : - Non-thrombosed external hemorrhoids, non-thrombosed internal hemorrhoids and internal hemorrhoids that prolapse with straining, but require manual replacement into the anal canal (Grade III) found on digital rectal exam. Friable to touch with easy bleeding from these prolapsing internal hemorrhoids. - The entire examined colon is normal. - No specimens collected. Recommendations : - Discharge patient to home. - Resume previous diet. - Continue present medications. - Repeat colonoscopy in 10 years for screening purposes. - Return to my office PRN to discuss surgical hemorrhoidectomy and treatment of prolapsing bleeding internal and external hemorrhoids My findings are described in the full procedure note, which is enclosed. If I can be of further assistance, please feel free to contact me at Doctor phone number(s): Work: . Sincerely, Reno Rider MD 08/19/2022 7:41:33 AM This report has been signed electronically.
== END 2022-08-19 08:23 | disposition home or self-care (01) ==
LOC: EN 06:09 → AC 06:10
PROVIDERS: PCP Family Medicine; Referring Provider Family Medicine; Visit Provider Surgery
PROC: 0DJD8ZZ Inspection of Lower Intestinal Tract, Via Natural or Artificial Opening Endoscopic (ICD-10-PCS; CPT 45378; principal; 2022-08-19 06:55)
DX: K29.70 Gastritis, unspecified, without bleeding (principal); I85.00 Esophageal varices without bleeding; K31.89 Other diseases of stomach and duodenum; K64.4 Residual hemorrhoidal skin tags; K64.2 Third degree hemorrhoids; K59.00 Constipation, unspecified; K20.90 Esophagitis, unspecified without bleeding
CPT/HCPCS: 43239; 45378; 88305; 88313; 88342; J7120; J2405

== ENCOUNTER → 2023-08-25 | Outpatient (CLI) | payer SELFPAY ==
[2023-08-25 11:02] LABS: Hematocrit 42.3 % (40-54); Hemoglobin 13.7 g/dL (13.0-16.5); Mean Corp Hgb Conc 32.4 g/dL (32-36); Mean Corpuscular Hgb 29.7 pg (27.0-32.0); Mean Corpuscular Volume 91.8 fL (80-94); Mean Platelet Vol. 10.7 fl (6.2-12.0); Platelet Count 236 K/mm3 (150-450); RBC Distribution Width SD 47.4 fl (35.1-43.9); Red Blood Count 4.61 M/mm3 (4.6-6.2); White Blood Count 7.3 K/mm3 (4.4-11.0)
[2023-08-25 11:12] LABS: Erythrocyte Sedimentation Rate 1 mm/hr (0-20)
[2023-08-25 11:30] LABS: Ammonia < 10.0 umol/L (11-32)
[2023-08-25 11:54] LABS: AST(SGOT) 15 U/L (15-37); Alanine Aminotransfer ALT/SGPT 21 U/L (16-61); Albumin, Serum 3.6 g/dL (3.2-5.0); Alkaline Phosphatase 39 U/L (45-117); Anion Gap 6 (5-15); BUN 12 mg/dL (7-18); BUN/Creat Ratio 13.1 RATIO (10-20); CRP < 2.90 mg/L (0.0-3.0); Calcium,Total 9.3 mg/dL (8.5-10.1); Chloride 106 mmol/L (98-107); Creatinine, Serum 0.92 mg/dL (0.70-1.30); EST Glomerular Filtration Rate 91 mL/min (>60); Est Glom Filt Rate - Afr Amer 110 mL/min (>60); Globulin 3.6 g/dL (2.2-4.2); Glucose 96 mg/dL (74-106); PSA,Total- Diagnostic 1.88 ng/mL (0.0-4.0); Potassium 4.1 mmol/L (3.5-5.1); Protein, Total 7.2 g/dL (6.4-8.2); Sodium Level 137 mmol/L (136-145); Thyroid Stim Hormone (TSH) 1.11 uIU/mL (0.358-3.74)
[2023-08-26 13:09] LABS: ANTINUCLEAR ANTIBODIES DIRECT Negative (Negative)
[2023-08-26 14:16] LABS: PROEL- A/G Ratio 1.3 (0.7-1.7); PROEL- Albumin 3.7 g/dL (2.9-4.4); PROEL- Alpha-1 Globulin 0.2 g/dL (0.0-0.4); PROEL- Alpha-2 Globulin 0.6 g/dL (0.4-1.0); PROEL- Globulin, Total 2.8 g/dL (2.2-3.9); PROEL- TOTAL PROTEIN 6.5 g/dL (6.0-8.5); PROEL-M-Spike Not Observed g/dL (Not Observed)
== END | disposition home or self-care (01) ==
LOC: LAB 10:24
PROVIDERS: PCP Family Medicine; Referring Provider Nurse Practitioner Family; Visit Provider Nurse Practitioner Family
DX: Z00.01 Encounter for general adult medical examination with abnormal findings (principal); F41.9 Anxiety disorder, unspecified; G47.00 Insomnia, unspecified; R21 Rash and other nonspecific skin eruption; G25.81 Restless legs syndrome; R11.10 Vomiting, unspecified; R74.8 Abnormal levels of other serum enzymes; Z12.5 Encounter for screening for malignant neoplasm of prostate; R17 Unspecified jaundice; R39.9 Unspecified symptoms and signs involving the genitourinary system
CPT/HCPCS: 36415; 80053; 82140; 84153; 84165; 84443; 85027; 85652; 86038; 86140